=== PATIENT | male | born 1935 | race Caucasian/White ===

== ENCOUNTER 2017-06-15 06:45 | Day surgery (SDC) | payer MEDICARE, OTHER ==
[~2017-06-15 06:45] MED LIST: BUPIVACAINE HCL 0.75% INJ/PF (7.5 MG/1 ML) 10 ML SDV OD PRN; KETOROLAC TROMETHAMINE 0.45% 4 DROP/0.4 ML DROPERETTE OD PRN; LIDOCAINE 4% INJ/PF (40 MG/ML) 5 ML AMPUL OD PRN
[2017-06-15] MEDS: TROPICAMIDE 1% OPH SOLN 3 ML OD PRN ×3 (07:05→07:29)
[2017-06-15] MEDS: CYCLOPENTOLATE 0.2%/PHENYLEPHRINE 1% OPH SOLN 2 ML OD PRN ×3 (07:05→07:29)
[2017-06-15] MEDS: BESIFLOXACIN HCL 0.6% OPH SUSP 5 ML BOTTLE OD PRN ×3 (07:06→08:24)
[2017-06-15] MEDS ORDERED: CHONDR SU A NA/HYALUR INTRAOC KIT (SURGICARE) ONE (07:07)
[2017-06-15] MEDS: TETRACAINE HCL 0.5% OPH SOLN 0.6 ML DROPERETTE OD PRN ×2 (07:07→07:30)
[2017-06-15] MEDS ORDERED: EPINEPHRINE INJ/PF 1 MG/1 ML AMPULE ONE (07:07)
[2017-06-15] MEDS ORDERED: MIDAZOLAM 2 MG/2 ML INJ ONE (07:26)
[2017-06-15] MEDS ORDERED: LIDOCAINE 1% INJ-PF (10 MG/ML) 30 ML SDV ONE (07:29)
--- NOTE | 2017-06-15 09:04 | [facility] DISCHARGE SUMMARY E ---
[facility] Discharge Summary NAME: EDGARDO MARIA AGE: 81Y ADMITTED: 06/15/2017 DISCHARGED: 06/15/2017 HOSPITAL COURSE: The patient is an 81-year-old gentleman who underwent uneventful cataract extraction with intraocular lens implant right eye on 06/15/2017. He will be discharged to home. He is instructed to resume preoperative medications, to take Tylenol as needed for discomfort, to keep his eye shielded, to use Besivance, Durezol, and Ilevro at 3 p.m. and 8 p.m., and to follow up in my office in 1 day. DICTATING PHYSICIAN: EDITH SANON M.D. [id number] PHY#: [id number] ID: [id number] JOB#: [id number] ACCT: [id number] cc:EDITH SANON M.D. >
--- NOTE | 2017-06-15 09:05 | [facility] OPERATIVE REPORT E ---
[facility] Operative Report NAME: EDGARDO MARIA AGE: 81Y DATE OF SURGERY: 06/15/2017 ROOM: PREOPERATIVE DIAGNOSIS: Cataract, right eye. POSTOPERATIVE DIAGNOSIS: Cataract, right eye. PROCEDURE PERFORMED: Phacoemulsification with posterior chamber intraocular lens, right eye. SURGEON: EDITH SANON M.D. ANESTHESIA: Topical with MAC. INDICATIONS FOR SURGERY: Difficulty driving at night. Best corrected visual acuity 20/60. PROCEDURE: The patient was brought to the Operating Room and placed on the operative table. Following tetracaine drops, topical anesthesia was administered. This consisted of instrument wipe pledgets soaked in a solution of 4% Xylocaine mixed with 0.75% Marcaine in a 1:2 ratio. A 2 x 1 cm pledget was placed in the superior fornix. A 1 x 1 cm pledget was placed in the inferior fornix. The eye was patched shut for 5 minutes. The patch was removed. The eye was sterilely prepped and draped in the usual manner. Lid speculum was placed in the eye. The pledgets were removed. 4-0 black silk sutures were placed around the superior and the inferior rectus muscles to be used as traction. A conjunctival peritomy was made at the 10 o'clock position. Hemostasis was obtained with bipolar cautery. A posterior limbal groove was created using a crescent knife and dissected anteriorly towards the cornea. A sharp point blade was used to create a paracentesis site at the 2 o'clock position. A 2.4 mm keratome was used to enter the anterior chamber through the groove. Viscoelastic was injected into the anterior chamber. An anterior capsulotomy was performed using Utrata forceps in a capsulorrhexis fashion. Hydrodissection and hydrodelineation were performed. Phacoemulsification was performed in rhoyec-pju-ztlfrgs technique. A total of 7.44 CDE phaco time was used. Following this, the I/A unit was used to remove residual cortex. Viscoelastic was injected into the capsular bag. Intraocular lens model [id number], 19.0 diopters, serial number [id number] was placed in the capsular bag. The I/A unit was used to remove residual viscoelastic. The wound was seen to be watertight under high and low pressure, and no sutures were placed. The intraocular lens was well centered. The pressure was adjusted in the eye to normal pressure. The 4-0 black silk sutures and lid speculum were removed. The eye was shielded after Besivance drops were placed. The patient tolerated the procedure well and was sent to the Recovery Room in good condition. DICTATING PHYSICIAN: EDITH SANON M.D. [id number] PHY#: [id number] ID: [id number] JOB#: [id number] ACCT: [id number] cc:EDITH SANON M.D. >
== END 2017-06-15 09:01 | disposition home or self-care (01) ==
LOC: SC 06:45
PROVIDERS: ATTEND Ophthalmology
PROC: 08RJ3JZ Replacement of Right Lens with Synthetic Substitute, Percutaneous Approach (ICD-10-PCS; principal; 2017-06-15 08:00)
DX: H25.813 Combined forms of age-related cataract, bilateral (principal); H04.123 Dry eye syndrome of bilateral lacrimal glands; K21.9 Gastro-esophageal reflux disease without esophagitis; Z79.899 Other long term (current) drug therapy; Z79.82 Long term (current) use of aspirin
CPT/HCPCS: 66984; V2632; J2250; J3490 ×4; A9270; J0171; 142

== ENCOUNTER 2017-07-06 09:05 | Day surgery (SDC) | payer MEDICARE, OTHER ==
[~2017-07-06 09:05] MED LIST changes: -BUPIVACAINE HCL 0.75% INJ/PF (7.5 MG/1 ML) 10 ML SDV OD PRN; +BUPIVACAINE HCL 0.75% INJ/PF (7.5 MG/1 ML) 10 ML SDV OS PRN; +CHONDR SU A NA/HYALUR INTRAOC KIT (SURGICARE) ONE; +EPINEPHRINE INJ/PF 1 MG/1 ML AMPULE ONE; -KETOROLAC TROMETHAMINE 0.45% 4 DROP/0.4 ML DROPERETTE OD PRN; +KETOROLAC TROMETHAMINE 0.45% 4 DROP/0.4 ML DROPERETTE OS PRN; +LIDOCAINE 1% INJ-PF (10 MG/ML) 30 ML SDV ONE; -LIDOCAINE 4% INJ/PF (40 MG/ML) 5 ML AMPUL OD PRN; +LIDOCAINE 4% INJ/PF (40 MG/ML) 5 ML AMPUL OS PRN
[2017-07-06] MEDS: TROPICAMIDE 1% OPH SOLN 3 ML OS PRN ×3 (09:27→09:54)
[2017-07-06] MEDS: CYCLOPENTOLATE 0.2%/PHENYLEPHRINE 1% OPH SOLN 2 ML OS PRN ×3 (09:27→09:54)
[2017-07-06] MEDS: BESIFLOXACIN HCL 0.6% OPH SUSP 5 ML BOTTLE OS PRN ×4 (09:28→10:49)
[2017-07-06] MEDS: TETRACAINE HCL 0.5% OPH SOLN 0.6 ML DROPERETTE OS PRN ×2 (09:29→10:01)
[2017-07-06] MEDS ORDERED: MIDAZOLAM 2 MG/2 ML INJ ONE (09:54)
[2017-07-06] MEDS ORDERED: FENTANYL CITRATE INJ/PF 100 MCG/2 ML AMPUL ONE (09:54)
--- NOTE | 2017-07-06 11:05 | [facility] OPERATIVE REPORT E ---
[facility] Operative Report NAME: EDGARDO MARIA AGE: 81Y DATE OF SURGERY: 07/06/2017 ROOM: PREOPERATIVE DIAGNOSES: 1. Cataract, left eye. 2. Astigmatism, left eye. POSTOPERATIVE DIAGNOSES: 1. Cataract, left eye. 2. Astigmatism, left eye. PROCEDURE PERFORMED: Phacoemulsification with toric intraocular lens implant, left eye. SURGEON: EDITH SANON M.D. ANESTHESIA: Topical with MAC. INDICATIONS FOR SURGERY: Difficulty with glare with night driving. BEST CORRECTED VISUAL ACUITY: 20/60. DESCRIPTION OF PROCEDURE: The patient was brought to the operating room and placed on the operative table. Following tetracaine drops, topical anesthesia was administered. This consisted of instrument wipe pledgets soaked in a solution of 4% Xylocaine mixed with 0.75% Marcaine in a 1:2 ratio. A 2 x 1 cm pledget was placed in the superior fornix. A 1 x 1 cm pledget was placed in the inferior fornix. The eye was patched shut for 5 minutes. The patch was removed. The eye was sterilely prepped and draped in the usual manner. Lid speculum was placed in the eye. The pledgets were removed, 4-0 black silk sutures were placed around the superior and the inferior rectus muscles to be used as traction. A conjunctival peritomy was made at the 10 o'clock position. Hemostasis was obtained with bipolar cautery. A posterior limbal groove was created using a crescent knife and dissected anteriorly towards the cornea. A sharp point blade was used to create a paracentesis site at the 2 o'clock position. A 2.4 mm keratome was used to enter the anterior chamber through the groove. Viscoelastic was injected into the anterior chamber. An anterior capsulotomy was performed using Utrata forceps in a capsulorrhexis fashion. Hydrodissection and hydrodelineation were performed. Phacoemulsification was performed in zofwir-ezt-cmbzsfc technique. Total phaco time 52 seconds. Following this, the I/A unit was used to remove residual cortex. Viscoelastic was injected into the capsular bag. Intraocular lens Model [id number], 20.5 diopters, serial number [id number] was placed in the capsular bag. The I/A unit was used to remove residual viscoelastic. The wound was seen to be watertight under high and low pressure, and no sutures were placed. The intraocular lens was well centered. The pressure was adjusted in the eye to normal pressure. The 4-0 black silk sutures and lid speculum were removed. The eye was shielded after Besivance drops were placed. The patient tolerated the procedure well and was sent to the recovery room in good condition. Prior to surgery, the patient was placed in the seated position and a 0-, 270-, and 180-degree axis of the eye was marked using a marking level. Prior to implanting the lens, the 175-degree axis was marked on the eye and the lens was centered at this axis. DICTATING PHYSICIAN: EDITH SANON M.D. [id number] PHY#: [id number] ID: [id number] JOB#: [id number] ACCT: [id number] cc:EDITH SANON M.D. >
--- NOTE | 2017-07-06 11:10 | [facility] DISCHARGE SUMMARY E ---
[facility] Discharge Summary NAME: EDGARDO MARIA AGE: 81Y ADMITTED: 07/06/2017 DISCHARGED: 07/06/2017 HOSPITAL COURSE: The patient is an 81-year-old gentleman who underwent uneventful cataract extraction with toric intraocular lens implant on 07/06/2017. He will be discharged to home. He was instructed to resume preoperative medications, to take Tylenol as needed for discomfort, to keep his eye shielded, to use Besivance, Durezol, and Ilevro at 3:00 p.m. and 8:00 p.m., to follow up in my office in 1 day. DICTATING PHYSICIAN: EDITH SANON M.D. [id number] PHY#: [id number] ID: [id number] JOB#: [id number] ACCT: [id number] cc:EDITH SANON M.D. >
== END 2017-07-06 11:21 | disposition home or self-care (01) ==
LOC: SC 09:05
PROVIDERS: ATTEND Ophthalmology
PROC: 08RK3JZ Replacement of Left Lens with Synthetic Substitute, Percutaneous Approach (ICD-10-PCS; principal; 2017-07-06 10:30)
DX: H25.812 Combined forms of age-related cataract, left eye (principal); Z96.1 Presence of intraocular lens; H52.202 Unspecified astigmatism, left eye
CPT/HCPCS: 66984; V2787; J2250; J3490 ×4; A9270; J0171; J3010; 142

== ENCOUNTER → 2017-12-28 | Outpatient (CLI) | payer MEDICARE, OTHER | LOC: OD 14:48 | PROVIDERS: ATTEND Family Medicine | DX: M25.50 Pain in unspecified joint (principal) | CPT/HCPCS: 36415; 85652; 86140 ==

== ENCOUNTER 2018-09-13 14:48 | Observation (INO) | payer MEDICARE, OTHER ==
[2018-09-13] MEDS ORDERED: MORPHINE SULFATE 10 MG/ML INJ IV ONE (16:08)
[2018-09-13] MEDS ORDERED: NORMAL SALINE 1000 ML 1,000 ML IV ONE (16:08)
[2018-09-13] MEDS ORDERED: ONDANSETRON HCL INJ/PF 4 MG/2 ML SDV IV ONE (16:08)
--- NOTE | 2018-09-13 16:10 | ER Document Report ---
ED Medical Screen (RME) - General Chief Complaint: Abdominal Pain Stated Complaint: GALLBLADDER PAIN Time Seen by Provider: 09/13/18 16:07 Primary Care Provider: LILLY VIZCARRA DO [Primary Care Provider] - Follow up as needed TRAVEL OUTSIDE OF THE [place] IN LAST 30 DAYS: No - HPI Notes: 09/13/18 16:09 Patient is an 82-year-old male with history of cholelithiasis who presents com plaining right upper quadrant pain and right scapular pain that began 5 days ago. Patient states that he was in [place] at the end of last week and was at the hospital for 2 days and they ran multiple tests on him. Patient states that he was told he need to see a doctor down here for his gallbladder and patient states that he cannot wait for an appointment with his family doctor so he presented here because the pain is getting worse. It is also worsened by p.o. intake. Patient states that the sharp pains come intermittently and he has associated nausea. Patient states that his urine is darker color as well. Denies drug allergies. No other medical history. Denies KELLY, fever, neck pain, URI, CP, SOB, dysuria, or rash. I have treated and performed a rapid initial assessment of this patient. A comprehensive ED assessment and evaluation of the patient, analysis of test results and completion of medical decision making process will be conducted by additional ED providers. PHYSICAL EXAMINATION: GENERAL: Well-appearing, well-nourished and in no acute distress. A&Ox4. Answers questions appropriately. LUNGS: Breath sounds clear to auscultation bilaterally and equal. No wheezes rales or rhonchi. HEART: Regular rate and rhythm without murmurs, rubs, gallops. ABDOMEN: Soft, nondistended abdomen. No guarding, no rebound. Normal bowel sounds present. No CVA tenderness bilaterally. + RUQ tenderness (cannot elicit thorough abd exam w/o bed, however). Extremities: No cyanosis, clubbing, or edema b/l. NEUROLOGICAL: Normal speech, normal gait. PSYCH: Normal mood, normal affect. - Related Data Allergies/Adverse Reactions: No Known Allergies Allergy (Verified 04/17/14 07:03) Past Medical History - Past Medical History Cardiac Medical History: Reports: Hx Atrial Fibrillation - paroxysmal Denies: Hx Heart Attack, Hx Hypertension Pulmonary Medical History: Denies: Hx Asthma Neurological Medical History: Denies: Hx Cerebrovascular Accident, Hx Seizures GI Medical History: Reports: Hx Gastroesophageal Reflux Disease. Denies: Hx Hepatitis, Hx Hiatal Hernia, Hx Ulcer Musculoskeltal Medical History: Reports Hx Arthritis Infectious Medical History: Denies: Hx Hepatitis Past Surgical History: Reports: Hx Genitourinary Surgery - vasectomy, Hx Neurologic Surgery - nerve ball removed form left arm 30 yrs ago. Denies: Hx Open Heart Surgery, Hx Pacemaker - Immunizations Immunizations up to date: Yes Hx Diphtheria, Pertussis, Tetanus Vaccination: Yes Physical Exam - Vital signs Vitals: Temp Pulse Resp BP Pulse Ox 98.9 F 99 18 148/73 H 96 09/13/18 14:52 09/13/18 14:52 09/13/18 14:52 09/13/18 14:52 09/13/18 14:52 Course - Vital Signs Vital signs: Temp Pulse Resp BP Pulse Ox 98.9 F 99 18 148/73 H 96 09/13/18 14:52 09/13/18 14:52 09/13/18 14:52 09/13/18 14:52 09/13/18 14:52 Doctor's Discharge - Discharge Referrals: LILLY VIZCARRA DO [Primary Care Provider] - Follow up as needed
[2018-09-13 16:51] LABS: ABSOLUTE EOSINOPHILS # (AUTO) 0.4 10^3/uL (0.0-0.6); ABSOLUTE LYMPHOCYTES (AUTO) 0.9 10^3/uL (0.5-4.7); ABSOLUTE NEUT (AUTO) 6.2 10^3/uL (1.7-8.2); BASOPHILS % (AUTO) 0.5 % (0-2); EOSINOPHILS % (AUTO) 4.2 % (0-6); HEMATOCRIT 43.7 % (37.9-51.0); HEMOGLOBIN 14.6 g/dL (13.5-17.0); LYMPHOCYTES % (AUTO) 10.1 % (13-45); MEAN CORPUSCULAR HEMOGLOBIN 30.8 pg (27.0-33.4); MEAN CORPUSCULAR HGB CONC 33.5 g/dL (32.0-36.0); MEAN CORPUSCULAR VOLUME 92 fl (80-97); MONOCYTES % (AUTO) 11.8 % (3-13); PLATELET COUNT 261 10^3/uL (150-450); RED BLOOD COUNT 4.76 10^6/uL (4.35-5.55); RED CELL DISTRIBUTION WIDTH 14.1 % (11.5-14.0); SEGMENTED NEUTROPHILS % (AUTO) 73.4 % (42-78); TOTAL CELLS COUNTED % (AUTO) 100 %; WHITE BLOOD COUNT 8.5 10^3/uL (4.0-10.5)
[2018-09-13 17:16] LABS: ALANINE AMINOTRANSFERASE 28 U/L (21-72); ALBUMIN 4.6 g/dL (3.5-5.0); ALKALINE PHOSPHATASE 92 U/L (38-126); ANION GAP 10 (5-19); ASPARTATE AMINO TRANSFERASE 25 U/L (17-59); BILIRUBIN,DIRECT 0.3 mg/dL (0.0-0.4); BILIRUBIN,TOTAL 1.1 mg/dL (0.2-1.3); BLOOD UREA NITROGEN 12 mg/dL (7-20); CALCIUM 9.9 mg/dL (8.4-10.2); CARBON DIOXIDE 31 mmol/L (22-30); CHLORIDE 99 mmol/L (98-107); GLUCOSE 111 mg/dL (75-110); LIPASE 61.6 U/L (23-300); POTASSIUM 4.1 mmol/L (3.6-5.0); SODIUM 140.4 mmol/L (137-145); TOTAL PROTEIN 7.6 g/dL (6.3-8.2)
--- NOTE | 2018-09-13 18:47 | RADIOLOGY REPORT (SQ) ---
EXAM DESCRIPTION: U/S ABDOMEN LIMITED W/O DOP COMPLETED DATE/TIME: 09/13/2018 6:33 pm REASON FOR STUDY: RUQ pain, h/o cholelithiasis COMPARISON: None. TECHNIQUE: Dynamic and static grayscale images acquired of the abdomen and recorded on PACS. Franklin gonzalez selected color Doppler and spectral images recorded. LIMITATIONS: None. FINDINGS: PANCREAS: No masses. The tail of the pancreas is obscured by gas. LIVER: No masses. Echotexture normal. LIVER VASCULATURE: Normal directional flow of the main portal vein and hepatic veins. GALLBLADDER: There are some small gallstones. There is some sludge. There is no wall thickening. T here is no pericholecystic fluid. ULTRASOUND-DETECTED CARTER'S SIGN: Negative. INTRAHEPATIC DUCTS AND COMMON DUCT: Common bile duct is dilated at 8 mm. INFERIOR VENA CAVA: Normal flow. AORTA: No aneurysm. RIGHT KIDNEY: Normal size, 12.2 cm. Normal echogenicity. No solid or suspicious masses. No hydroneph rosis. No calcifications. PERITONEAL AND RIGHT PLEURAL SPACE: No ascites or effusions. OTHER: No other significant findings. IMPRESSION: Cholelithiasis with dilated common bile duct. Correlate for biliary obstruction. TECHNICAL DOCUMENTATION: JOB ID: [id number] [employer]- All Rights Reserved Reading location - IP/workstation name: [email or web address]
--- NOTE | 2018-09-13 19:30 | ER Document Report ---
ED General - General Chief Complaint: Abdominal Pain Stated Complaint: GALLBLADDER PAIN Time Seen by Provider: 09/13/18 16:07 Primary Care Provider: LILLY VIZCARRA DO [Primary Care Provider] - Follow up as needed Notes: Patient is an 82-year-old male without chronic medical problems who presents with 4 days of progressively worsening upper abdominal pain with associated nausea but no vomiting. Patient was seen in [place] on 09/09, diagnosed with a gallbladder neck stone as well as a HIDA scan suggestive of a nonfunctional gallbladder. He elected to be discharged stating that he wanted to have his surgery completed where he lives here in [place]. He states that he currently has a dull, throbbing, constant pain to his right upper quadrant. Associated with nausea. No exacerbating or alleviating factors that he can identify. Regards to symptoms as being moderate to severe in nature. Denies any history of abdominal surgeries. Has not yet followed up with his primary care physician. TRAVEL OUTSIDE OF THE U.S. IN LAST 30 DAYS: No - Related Data Allergies/Adverse Reactions: No Known Allergies Allergy (Verified 04/17/14 07:03) Past Medical History - General Information source: Patient - Social History Smoking Status: Never Smoker Frequency of alcohol use: None Drug Abuse: None Lives with: Alone Family History: Arthritis, Hyperlipidemia Patient has suicidal ideation: No Patient has homicidal ideation: No - Past Medical History Cardiac Medical History: Reports: Hx Atrial Fibrillation - paroxysmal Denies: Hx Heart Attack, Hx Hypertension Pulmonary Medical History: Denies: Hx Asthma Neurological Medical History: Denies: Hx Cerebrovascular Accident, Hx Seizures Renal/ Medical History: Denies: Hx Peritoneal Dialysis GI Medical History: Reports: Hx Gastroesophageal Reflux Disease. Denies: Hx Hepatitis, Hx Hiatal Hernia, Hx Ulcer Musculoskeletal Medical History: Reports Hx Arthritis Infectious Medical History: Denies: Hx Hepatitis Past Surgical History: Reports: Hx Genitourinary Surgery - vasectomy, Hx Neurologic Surgery - nerve ball removed form left arm 30 yrs ago. Denies: Hx Open Heart Surgery, Hx Pacemaker - Immunizations Immunizations up to date: Yes Hx Diphtheria, Pertussis, Tetanus Vaccination: Yes Hx Pneumococcal Vaccination: 10/27/13 Review of Systems - Review of Systems Notes: Constitutional: Negative for fever. HENT: Negative for sore throat. Eyes: Negative for visual changes. Cardiovascular: Negative for chest pain. Respiratory: Negative for shortness of breath. Gastrointestinal: Positive for abdominal pain, nausea Genitourinary: Negative for dysuria. Musculoskeletal: Negative for back pain. Skin: Negative for rash. Neurological: Negative for headaches, weakness or numbness. 10 point ROS negative except as marked above and in HPI. Physical Exam - Vital signs Vitals: Temp Pulse Resp BP Pulse Ox 98.9 F 99 18 148/73 H 96 09/13/18 14:52 09/13/18 14:52 09/13/18 14:52 09/13/18 14:52 09/13/18 14:52 Interpretation: Hypertensive Notes: PHYSICAL EXAMINATION: GENERAL: Well-appearing, well-nourished and in no acute distress. HEAD: Atraumatic, normocephalic. EYES: Pupils equal round and reactive to light, extraocular movements intact, sclera anicteric, conjunctiva are normal. ENT: nares patent, oropharynx clear without exudates. Moist mucous membranes. NECK: Normal range of motion, supple without lymphadenopathy LUNGS: Breath sounds clear to auscultation bilaterally and equal. No wheezes rales or rhonchi. HEART: Regular rate and rhythm without murmurs ABDOMEN: Soft, focal tenderness to the right upper quadrant without any areas of localized tenderness, normoactive bowel sounds. No guarding, no rebound. No masses appreciated. EXTREMITIES: Normal range of motion, no pitting or edema. No cyanosis. NEUROLOGICAL: No focal neurological deficits. Moves all extremities spontaneously and on command. PSYCH: Normal mood, normal affect. SKIN: Warm, Dry, normal turgor, no rashes or lesions noted. Course - Re-evaluation Re-evalutation: 09/13/18 19:27 Patient presents with ongoing right upper quadrant abdominal pain with associated nausea. Vitals are within acceptable limits. Labs do not demonstrate any evidence of distal obstruction. Patient has imaging reads and disc with him. I did discuss with the surgeon on-call Dr. Waddell who has accepted the patient for hospitalization and cholecystectomy. - Vital Signs Vital signs: Temp Pulse Resp BP Pulse Ox 98.9 F 99 18 148/73 H 96 09/13/18 14:52 09/13/18 14:52 09/13/18 14:52 09/13/18 14:52 09/13/18 14:52 - Laboratory Result Diagrams: 09/13/18 16:38 09/13/18 16:38 Laboratory results interpreted by me: 09/13/18 09/13/18 16:38 16:38 RDW 14.1 H Lymphocytes % 10.1 L Carbon Dioxide 31 H Glucose 111 H - Diagnostic Test Radiology reviewed: Reports reviewed Discharge - Discharge Clinical Impression: Symptomatic cholelithiasis, Upper abdominal pain Condition: Fair Disposition: ADMITTED INPATIENT Admitting Provider: Surgicalist Unit Admitted: Surgical Floor Referrals: LILLY VIZCARRA DO [Primary Care Provider] - Follow up as needed
[2018-09-13] MEDS ORDERED: ONDANSETRON HCL INJ/PF 4 MG/2 ML SDV IV PRN (21:00)
--- NOTE | 2018-09-13 21:00 | PDOC H&P ---
History of Present Illness Admission Date/PCP: 09/13/18 19:45 LILLY VIZCARRA DO Patient complains of: RUQ pains History of Present Illness: EDGARDO MARIA JR is a 82 year old male who was in [place], [place] for a [employer] retreat when he developed RUQ pains with nausea after eating pizza 5 days ago. Went to am ER there and w/up showed cholelithiasis and non functioning gallbladdr without CBD obstruction. Hr was supposed to have cholecystectomy there but came back here to have his operation. Repeat US here showed cholelithiasis with LFT's normal. He is still c/o RUQ pains aggravated by coughing or deep breathing. Denies fever/chill, diarrhea but has constipation. Past Medical History Cardiac Medical History: Reports: Atrial Fibrillation - paroxysmal Denies: Myocardial Infarction, Hypertension Pulmonary Medical History: Denies: Asthma Neurological Medical History: Denies: Seizures GI Medical History: Reports: Gastroesophageal Reflux Disease Denies: Hepatitis, Hiatal Hernia Musculoskeltal Medical History: Reports: Arthritis Hematology: Denies: Anemia, Sickle Cell Disease Past Surgical History Past Surgical History: Reports: Orthopedic Surgery - [id number] last at [place]. He did not require cardiac clearanc, Other Denies: Pacemaker Social History Lives with: Alone Smoking Status: Never Smoker Family History Family History: Arthritis, Hyperlipidemia Parental Family History Reviewed: Yes - 103 yo and healthy; Does not know his father Children Family History Reviewed: No Sibling(s) Family History Reviewed.: No - only child Medication/Allergy Home Medications: Aspirin [Ecotrin 81 mg EC Tablet] 81 mg PO DAILY 09/13/18 Allergies/Adverse Reactions: No Known Allergies Allergy (Verified 04/17/14 07:03) Review of Systems Constitutional: PRESENT: as per HPI Eyes: PRESENT: other - no visual/hearing changes Gastrointestinal: PRESENT: abdominal pain, constipation, nausea Genitourinary: PRESENT: other - no dysuria Physical Exam Vital Signs: Temp Pulse Resp BP Pulse Ox 98.9 F 99 18 148/73 H 96 09/13/18 14:52 09/13/18 14:52 09/13/18 14:52 09/13/18 14:52 09/13/18 14:52 Intake & Output 09/12/18 09/13/18 09/14/18 06:59 06:59 06:59 Intake Total 1000 Balance 1000 Weight 86.8 kg General appearance: PRESENT: mild distress Head exam: PRESENT: atraumatic Eye exam: PRESENT: conjunctiva pink Mouth exam: PRESENT: moist Neck exam: PRESENT: full ROM Respiratory exam: PRESENT: clear to auscultation xavi Cardiovascular exam: PRESENT: RRR Pulses: PRESENT: normal radial pulses Vascular exam: PRESENT: normal capillary refill GI/Abdominal exam: PRESENT: soft, tenderness - RUQ Rectal exam: PRESENT: deferred Extremities exam: PRESENT: full ROM Musculoskeletal exam: PRESENT: ambulatory Neurological exam: PRESENT: alert, oriented to person, oriented to place, oriented to time, oriented to situation Psychiatric exam: PRESENT: appropriate affect Skin exam: PRESENT: normal color, warm Results Laboratory Results: 09/13/18 16:38 09/13/18 16:38 09/13/18 09/13/18 16:38 16:38 WBC 8.5 RBC 4.76 Hgb 14.6 Hct 43.7 MCV 92 MCH 30.8 MCHC 33.5 RDW 14.1 H Plt Count 261 Seg Neutrophils % 73.4 Lymphocytes % 10.1 L Monocytes % 11.8 Eosinophils % 4.2 Basophils % 0.5 Absolute Neutrophils 6.2 Absolute Lymphocytes 0.9 Absolute Monocytes 1.0 Absolute Eosinophils 0.4 Absolute Basophils 0.0 Sodium 140.4 Potassium 4.1 Chloride 99 Carbon Dioxide 31 H Anion Gap 10 BUN 12 Creatinine 0.73 Est GFR ( Amer) > 60 Est GFR (Non-Af Amer) > 60 Glucose 111 H Calcium 9.9 Total Bilirubin 1.1 AST 25 ALT 28 Alkaline Phosphatase 92 Total Protein 7.6 Albumin 4.6 Lipase 61.6 Impressions: Abdomen Ultrasound 09/13/18 16:08 IMPRESSION: Cholelithiasis with dilated common bile duct. Correlate for biliary obstruction. Assessment & Plan - Diagnosis (1) Symptomatic cholelithiasis Is this a current diagnosis for this admission?: Yes - Time Time Spent: 30 to 50 Minutes - Inpatient Certification Medical Necessity: Need For IV Fluids, Need for IV Antibiotics, Need for Surgery - Plan Summary Plan Summary: Will obtain medical clearance prior to Lap Corrina Possible lap corrina tomorrow with Dr Benjamin
[2018-09-13] MEDS ORDERED: MORPHINE SULFATE 10 MG/ML INJ IV PRN (21:04)
[2018-09-13] MEDS ORDERED: DEXTROSE 40% GEL 15 GM TUBE PO PRN ×2 (21:05)
[2018-09-13] MEDS ORDERED: GLUCAGON,HUMAN RECOMB 1 MG INJ SUBCUT PRN (21:05)
[2018-09-13] MEDS ORDERED: DEXTROSE 50%-WATER 25 GM/50 ML DISP.SYRIN IV PRN ×2 (21:05)
[2018-09-13] MEDS ORDERED: PIPERACILLIN/TAZOBACTAM 3.375 GM VIAL IV SCH (21:15)
[2018-09-13] MEDS ORDERED: KETOROLAC TROMETHAMINE INJ/PF 30 MG/1 ML SDV IV PRN (22:23)
[2018-09-13] MEDS: PIPERACILLIN SODIUM/TAZOBACTAM 3.375 GM in NORMAL SALINE 100 ML IV SCH (23:50)
--- NOTE | 2018-09-13 23:54 | PDOC CONSULTATION ---
Consultation Consult Date: 09/13/18 Attending physician:: MINE SOMMERS Provider Consulted: EDGARDO GOODWIN Consult reason:: Preop eval History of Present Illness Admission Date/PCP: 09/13/18 19:45 LILLY VIZCARRA DO Patient complains of: Right upper quadrant pain History of Present Illness: EDGARDO MARIA JR is a 82 year old male with a past medical history of atrial fibrillation status post catheter ablation resulting in normal sinus rhythm gre ater than 3 years ago. Whom is otherwise healthy. Patient has had several surgeries subsequent to his catheter ablation for atrial fibrillation. Including colonoscopy, cataracts and L-spine surgery. Preop work-up included EKG unchanged from 2016, patient is otherwise fit, activities not limited by shortness of breath or chest pain. He denies history of adverse reaction or difficulty during or subsequent to anesthesia. Past Medical History Cardiac Medical History: Reports: Atrial Fibrillation - paroxysmal Denies: Myocardial Infarction, Hypertension Pulmonary Medical History: Denies: Asthma Neurological Medical History: Denies: Seizures GI Medical History: Reports: Gastroesophageal Reflux Disease Denies: Hepatitis, Hiatal Hernia Musculoskeltal Medical History: Reports: Arthritis Psychiatric Medical History: Denies: Alcohol Dependency, Tobacco Dependency Hematology: Denies: Anemia, Sickle Cell Disease Past Surgical History Past Surgical History: Reports: Orthopedic Surgery - [id number] last at [facility]. He did not require cardiac clearanc, Other Denies: Pacemaker Social History Information Source: Patient Lives with: Alone Smoking Status: Never Smoker Frequency of Alcohol Use: None Hx Recreational Drug Use: No Drugs: None Hx Prescription Drug Abuse: No - Advance Directive Resuscitation Status: Full Code Family History Family History: Arthritis, Hyperlipidemia Parental Family History Reviewed: Yes Children Family History Reviewed: Yes Sibling(s) Family History Reviewed.: Yes Medication/Allergy Home Medications: Aspirin [Ecotrin 81 mg EC Tablet] 81 mg PO DAILY 09/13/18 Allergies/Adverse Reactions: No Known Allergies Allergy (Verified 04/17/14 07:03) Review of Systems Constitutional: ABSENT: chills, fever(s), headache(s), weight gain, weight loss Eyes: ABSENT: visual disturbances Ears: ABSENT: hearing changes Cardiovascular: ABSENT: chest pain, dyspnea on exertion, edema, orthropnea, palpitations Respiratory: ABSENT: cough, hemoptysis Gastrointestinal: ABSENT: abdominal pain, constipation, diarrhea, hematemesis, hematochezia, nausea, vomiting Genitourinary: ABSENT: dysuria, hematuria Musculoskeletal: ABSENT: joint swelling Integumentary: ABSENT: rash, wounds Neurological: ABSENT: abnormal gait, abnormal speech, confusion, dizziness, focal weakness, syncope Psychiatric: ABSENT: anxiety, depression, homidical ideation, suicidal ideation Endocrine: ABSENT: cold intolerance, heat intolerance, polydipsia, polyuria Hematologic/Lymphatic: ABSENT: easy bleeding, easy bruising Physical Exam Vital Signs: Temp Pulse Resp BP Pulse Ox 97.9 F 80 18 123/71 94 09/13/18 20:42 09/13/18 20:42 09/13/18 20:42 09/13/18 20:42 09/13/18 20:42 Intake & Output 09/12/18 09/13/18 09/14/18 11:59 11:59 11:59 Intake Total 1000 Balance 1000 Weight 86.8 kg General appearance: PRESENT: no acute distress, well-developed, well-nourished Head exam: PRESENT: atraumatic, normocephalic Eye exam: PRESENT: conjunctiva pink, EOMI, PERRLA. ABSENT: scleral icterus Ear exam: PRESENT: normal external ear exam Mouth exam: PRESENT: moist, tongue midline Neck exam: ABSENT: carotid bruit, JVD, lymphadenopathy, thyromegaly Respiratory exam: PRESENT: clear to auscultation xavi. ABSENT: rales, rhonchi, wheezes Cardiovascular exam: PRESENT: RRR. ABSENT: diastolic murmur, rubs, systolic murmur Pulses: PRESENT: normal dorsalis pedis pul Vascular exam: PRESENT: normal capillary refill GI/Abdominal exam: PRESENT: normal bowel sounds, soft. ABSENT: distended, guarding, mass, organolmegaly, rebound, tenderness Rectal exam: PRESENT: deferred Extremities exam: PRESENT: full ROM. ABSENT: calf tenderness, clubbing, pedal edema Neurological exam: PRESENT: alert, awake, oriented to person, oriented to place, oriented to time, oriented to situation, CN II-XII grossly intact. ABSENT: motor sensory deficit Psychiatric exam: PRESENT: appropriate affect, normal mood. ABSENT: homicidal ideation, suicidal ideation Skin exam: PRESENT: dry, intact, warm. ABSENT: cyanosis, rash Results Laboratory Results: 09/13/18 16:38 09/13/18 16:38 09/13/18 09/13/18 16:38 16:38 WBC 8.5 RBC 4.76 Hgb 14.6 Hct 43.7 MCV 92 MCH 30.8 MCHC 33.5 RDW 14.1 H Plt Count 261 Seg Neutrophils % 73.4 Lymphocytes % 10.1 L Monocytes % 11.8 Eosinophils % 4.2 Basophils % 0.5 Absolute Neutrophils 6.2 Absolute Lymphocytes 0.9 Absolute Monocytes 1.0 Absolute Eosinophils 0.4 Absolute Basophils 0.0 Sodium 140.4 Potassium 4.1 Chloride 99 Carbon Dioxide 31 H Anion Gap 10 BUN 12 Creatinine 0.73 Est GFR ( Amer) > 60 Est GFR (Non-Af Amer) > 60 Glucose 111 H Calcium 9.9 Total Bilirubin 1.1 AST 25 ALT 28 Alkaline Phosphatase 92 Total Protein 7.6 Albumin 4.6 Lipase 61.6 Impressions: Abdomen Ultrasound 09/13/18 16:08 IMPRESSION: Cholelithiasis with dilated common bile duct. Correlate for biliary obstruction. Assessment and Plan - Diagnosis (1) Symptomatic cholelithiasis Is this a current diagnosis for this admission?: Yes Plan: Lap jake scheduled for the a.m., no pre-existing modifiable risks present to delay planned low risk surgery. (2) Upper abdominal pain Is this a current diagnosis for this admission?: Yes Plan: Defer to surgery (3) History of atrial fibrillation Is this a current diagnosis for this admission?: Yes Plan: Resolved, EKG unchanged from 2016. Proceed with scheduled surgery, no additional recommendations
--- NOTE | 2018-09-14 00:15 | EKG REPORT ---
SEVERITY:- ABNORMAL ECG - SINUS RHYTHM ATRIAL PREMATURE COMPLEX LEFT ANTERIOR FASCICULAR BLOCK CONSIDER ANTEROSEPTAL INFARCT : Confirmed by: Reinier Barbosa 14-Sep-2018 00:14:42
[2018-09-14] MEDS: PIPERACILLIN SODIUM/TAZOBACTAM 3.375 GM in NORMAL SALINE 100 ML IV SCH ×4 (05:20→23:17)
[2018-09-14] MEDS ORDERED: BUPIVACAINE HCL 0.25 % INJ/PF (2.5 MG/1 ML) 30 ML VIAL ONE (08:41)
[2018-09-14] MEDS ORDERED: FENTANYL CITRATE INJ/PF 250 MCG/5 ML AMPULE ONE (09:00)
[2018-09-14] MEDS ORDERED: PROPOFOL INJ 200 MG/20 ML VIAL IV ONE (09:00)
[2018-09-14] MEDS ORDERED: LIDOCAINE 2% INJ-PF (100 MG/5 ML) SYRINGE ONE (09:00)
--- NOTE | 2018-09-14 09:19 | PDOC PROGRESS REPORT ---
Subjective Progress Note for:: 09/14/18 Subjective:: 82-year-old male admitted with acute cholecystitis. The patient still reports abdominal pain. He denies chest pain, shortness of breath, fevers, chills, dizziness, orthostasis, blurry vision. Reason For Visit: SYMPTOMATIC CHOLELITHIASIS Physical Exam Vital Signs: Temp Pulse Resp BP Pulse Ox 97.5 F 71 16 109/63 97 09/14/18 08:26 09/14/18 08:26 09/14/18 08:26 09/14/18 08:26 09/14/18 08:26 Intake & Output 09/13/18 09/14/18 09/15/18 06:59 06:59 06:59 Intake Total 1430 Balance 1430 Weight 85.6 kg General appearance: PRESENT: no acute distress, cooperative Head exam: PRESENT: atraumatic, normocephalic Eye exam: PRESENT: EOMI Mouth exam: PRESENT: moist, neck supple Teeth exam: ABSENT: poor dentation Neck exam: ABSENT: meningismus, tenderness, thyromegaly, tracheal deviation Respiratory exam: PRESENT: clear to auscultation xavi, unlabored. ABSENT: chest wall tenderness, wheezes Cardiovascular exam: PRESENT: RRR Pulses: PRESENT: normal radial pulses GI/Abdominal exam: PRESENT: soft, tenderness - Right upper quadrant. ABSENT: rebound, rigid Rectal exam: PRESENT: deferred Extremities exam: ABSENT: clubbing Musculoskeletal exam: ABSENT: deformity Neurological exam: PRESENT: alert, awake, oriented to person, oriented to place, oriented to time, oriented to situation, CN II-XII grossly intact. ABSENT: motor sensory deficit Psychiatric exam: ABSENT: agitated, anxious Skin exam: ABSENT: cyanosis, erythema, jaundice Results Laboratory Results: 09/13/18 16:38 09/13/18 16:38 09/13/18 09/13/18 16:38 16:38 WBC 8.5 RBC 4.76 Hgb 14.6 Hct 43.7 MCV 92 MCH 30.8 MCHC 33.5 RDW 14.1 H Plt Count 261 Seg Neutrophils % 73.4 Lymphocytes % 10.1 L Monocytes % 11.8 Eosinophils % 4.2 Basophils % 0.5 Absolute Neutrophils 6.2 Absolute Lymphocytes 0.9 Absolute Monocytes 1.0 Absolute Eosinophils 0.4 Absolute Basophils 0.0 Sodium 140.4 Potassium 4.1 Chloride 99 Carbon Dioxide 31 H Anion Gap 10 BUN 12 Creatinine 0.73 Est GFR ( Amer) > 60 Est GFR (Non-Af Amer) > 60 Glucose 111 H Calcium 9.9 Total Bilirubin 1.1 AST 25 ALT 28 Alkaline Phosphatase 92 Total Protein 7.6 Albumin 4.6 Lipase 61.6 Impressions: Abdomen Ultrasound 09/13/18 16:08 IMPRESSION: Cholelithiasis with dilated common bile duct. Correlate for biliary obstruction. Assessment & Plan - Diagnosis (1) Acute cholecystitis Is this a current diagnosis for this admission?: Yes - Plan Summary Plan Summary: This is an 82-year-old male with right upper quadrant pain and gallstones. I be lieve he has early acute cholecystitis. The patient has been on intravenous antibiotics. Plan for laparoscopic cholecystectomy today. The patient is in agreement with the treatment plan. Risks/benefits discussed, informed consent obtained, and all questions answered.
[2018-09-14] MEDS ORDERED: PROMETHAZINE HCL INJ 25 MG/1 ML VIAL IV PRN ×2 (09:56)
[2018-09-14] MEDS ORDERED: MEPERIDINE HCL/PF INJ 25 MG/1 ML DISP.SYRIN IV PRN (09:56)
[2018-09-14] MEDS ORDERED: FENTANYL CITRATE INJ/PF 100 MCG/2 ML AMPUL IV PRN ×3 (09:56)
[2018-09-14] MEDS ORDERED: MORPHINE SULFATE 10 MG/ML INJ IV PRN (09:56)
[2018-09-14] MEDS ORDERED: DIPHENHYDRAMINE HCL 50 MG/ML VIAL IV PRN (09:56)
[2018-09-14] MEDS: FENTANYL CITRATE INJ/PF 100 MCG/2 ML AMPUL ONE ×2 (11:15→11:20)
--- NOTE | 2018-09-14 11:34 | Operative Report ---
Nonrecallable Operative Report DATE OF SURGERY: 09/14/18 PREOPERATIVE DIAGNOSIS: Acute cholecystitis POSTOPERATIVE DIAGNOSIS: Acute gangrenous cholecystitis OPERATION: Laparoscopic cholecystectomy SURGEON: TREY JUAN ANESTHESIA: GA TISSUE REMOVED OR ALTERED: Gallbladder COMPLICATIONS: None apparent ESTIMATED BLOOD LOSS: 300 cc PROCEDURE: Drains/implants: 15 [place]ander round Bryant drain in the gallbladder fossa. Procedure in detail: After informed consent was obtained, the patient was brought to the operating room and laid in the supine position. The area of the abdomen was prepped and draped in a normal sterile fashion. A 15 blade scalpel was used to create a supraumbilical incision. Dissection was carried through the subcutaneous tissue using sharp and blunt means. The cicatrix was identified, grasped with a Vicente clamp, and retracted upwards. The linea alba fascia was incised sharply, the abdomen was entered sharply. The balloon trocar was inserted, and pneumoperitoneum was achieved. A subxiphoid 5 mm port was then placed under direct laparoscopic visualization. 2 more 5 mm ports were placed in the right upper quadrant in similar fashion. Atraumatic graspers were inserted into the 5 mm trochars. The gallbladder was identified. It was gangrenous appearing and incredibly inflamed. It was tense and distended. A cyst aspiration needle was then used to aspirate approximately 80 cc of thick bile from the gallbladder. It was then retracted superiorly. There were multiple adhesions of the duodenum and omentum to the gallbladder. These were lysed sharply. The inflammatory reaction extended to the infundibulum of the gallbladder. It was very dense. Secondary to this, a dome down technique was favored. Electrocautery was used to free the gallbladder from the liver. Dissection was taken down to an area that was felt to be near the infundibulum/cystic duct junction. The gallbladder was then amputated. The gallbladder remnant was then inspected. The cystic duct/infundibulum junction was visually identified. A PDS Endoloop was then secured around the cystic duct/infundibulum junction. Once this was completed, the gallbladder was placed into an Endo Catch bag and pulled out through the umbilicus. The abdomen was then copiously irrigated and suctioned, until the effluent was clear. The hilum was then inspected. It was found to be free of any leakage of blood or bile. Next, a 15 [place] round Bryant drain was inserted through the lateralmost trocar. It was placed into the gallbladder fossa. The drain was then sutured to the skin using 2-0 nylon suture. The remaining 5 mm trochars were then removed under direct laparoscopic visualization. The supraumbilical trocar was removed, and pneumoperitoneum was relieved. The supraumbilical fascia was closed using 0 Vicryl suture in [id number] fashion. The overlying skin was closed using 4-0 Vicryl Rapide suture in subcuticular fashion. Dressings were placed, and the procedure was concluded. All sponge, instrument, and needle counts were correct x2. Condition: Stable.
[2018-09-14] MEDS ORDERED: ACETAMINOPHEN 1,000 MG/100 ML RTUPB IV ONE ×2 (11:53→13:15)
[2018-09-14] MEDS ORDERED: ONDANSETRON HCL INJ/PF 4 MG/2 ML SDV IV PRN (12:52)
[2018-09-14] MEDS ORDERED: HYDROCODONE/ACETAMINOPHEN 10-325 MG TABLET PO PRN (12:52)
[2018-09-14] MEDS: KETOROLAC TROMETHAMINE INJ/PF 30 MG/1 ML SDV IV SCH ×2 (17:09→21:53)
[2018-09-14] MEDS ORDERED: NEOSTIGMINE METHYLSULFATE 10 MG/10 ML VIAL ONE (17:28)
[2018-09-14] MEDS ORDERED: GLYCOPYRROLATE 1 MG/5 ML VIAL ONE (17:28)
[2018-09-14] MEDS ORDERED: ONDANSETRON HCL INJ/PF 4 MG/2 ML SDV ONE (17:28)
[2018-09-14] MEDS ORDERED: LIDOCAINE 2% INJ-PF (20 MG/ML) 2 ML AMPUL ONE (17:28)
--- NOTE | 2018-09-14 19:25 | PDOC PROGRESS REPORT ---
Subjective Progress Note for:: 09/14/18 Subjective:: EDGARDO MARIA JR is a 82 year old male with a past medical history of atrial fibrillation status post catheter ablation resulting in normal sinus rhythm greater than 3 years ago admitted to the Surgicalist service for symptomatic cholelithiasis. Hospitalist services consulted for medical clearance. Patient was seen on afternoon rounds s/p lap jake. He was found resting in bed comfortably on room air. He endorses abd discomfort, though improved as compared to time of admission. He denies fever, chills, chest pain, palpitations, dyspnea, orthopnea, cough, na usea, vomiting and diarrhea. He has no questions or concerns at this time. No concerns per nursing. Reason For Visit: SYMPTOMATIC CHOLELITHIASIS Physical Exam Vital Signs: Temp Pulse Resp BP Pulse Ox 99.5 F 97 16 154/78 H 97 09/14/18 16:15 09/14/18 16:15 09/14/18 16:15 09/14/18 16:15 09/14/18 16:15 Intake & Output 09/13/18 09/14/18 09/15/18 06:59 06:59 06:59 Intake Total 1430 3980 Output Total 2405 Balance 1430 1575 Weight 85.6 kg General appearance: PRESENT: no acute distress, well-developed, well-nourished Head exam: PRESENT: atraumatic, normocephalic Eye exam: PRESENT: conjunctiva pink, EOMI, PERRLA. ABSENT: scleral icterus Ear exam: PRESENT: normal external ear exam Mouth exam: PRESENT: moist, tongue midline Neck exam: ABSENT: carotid bruit, JVD, lymphadenopathy, thyromegaly Respiratory exam: PRESENT: clear to auscultation xavi. ABSENT: rales, rhonchi, wheezes Cardiovascular exam: PRESENT: RRR. ABSENT: diastolic murmur, rubs, systolic mur mur Pulses: PRESENT: normal dorsalis pedis pul Vascular exam: PRESENT: normal capillary refill GI/Abdominal exam: PRESENT: normal bowel sounds, soft, tenderness. ABSENT: distended, guarding, mass, organolmegaly, rebound Rectal exam: PRESENT: deferred Extremities exam: PRESENT: full ROM. ABSENT: calf tenderness, clubbing, pedal edema Neurological exam: PRESENT: alert, awake, oriented to person, oriented to place, oriented to time, oriented to situation, CN II-XII grossly intact. ABSENT: motor sensory deficit Psychiatric exam: PRESENT: appropriate affect, normal mood. ABSENT: homicidal ideation, suicidal ideation Skin exam: PRESENT: dry, intact, warm. ABSENT: cyanosis, rash Results Laboratory Results: 09/13/18 16:38 09/13/18 16:38 Impressions: Abdomen Ultrasound 09/13/18 16:08 IMPRESSION: Cholelithiasis with dilated common bile duct. Correlate for biliary obstruction. Assessment and Plan - Diagnosis (1) History of atrial fibrillation Is this a current diagnosis for this admission?: Yes Plan: Resolved, EKG unchanged from 2016. Uneventful perioperative period. Recommend routine follow-up with primary care provider post discharge. (2) Symptomatic cholelithiasis Is this a current diagnosis for this admission?: Yes Plan: Now s/p Lap jake. Management per Surgicalist team. (3) Upper abdominal pain Is this a current diagnosis for this admission?: Yes Plan: Secondary to #2. Defer to surgery - Time Time Spent with patient: Less than 15 minutes - Plan Summary Plan Summary: The hospitalist service will sign off at this time; please reconsult if we can provide any further assistance.
[2018-09-14] MEDS: FAMOTIDINE 20 MG TABLET PO SCH (21:54)
[2018-09-15] MEDS: PIPERACILLIN SODIUM/TAZOBACTAM 3.375 GM in NORMAL SALINE 100 ML IV SCH ×3 (05:36→18:45)
[2018-09-15] MEDS: KETOROLAC TROMETHAMINE INJ/PF 30 MG/1 ML SDV IV SCH ×3 (05:37→21:45)
[2018-09-15 06:01] LABS: ALANINE AMINOTRANSFERASE 53 U/L (21-72); ALBUMIN 3.3 g/dL (3.5-5.0); ALKALINE PHOSPHATASE 73 U/L (38-126); ANION GAP 10 (5-19); ASPARTATE AMINO TRANSFERASE 53 U/L (17-59); BILIRUBIN,DIRECT 0.4 mg/dL (0.0-0.4); BILIRUBIN,TOTAL 1.2 mg/dL (0.2-1.3); BLOOD UREA NITROGEN 11 mg/dL (7-20); CALCIUM 8.9 mg/dL (8.4-10.2); CARBON DIOXIDE 24 mmol/L (22-30); CHLORIDE 103 mmol/L (98-107); GLUCOSE 119 mg/dL (75-110); SODIUM 136.7 mmol/L (137-145); TOTAL PROTEIN 5.8 g/dL (6.3-8.2)
--- NOTE | 2018-09-15 08:36 | PDOC PROGRESS REPORT ---
Subjective Progress Note for:: 09/15/18 Subjective:: still bloated some ruq pain Reason For Visit: SYMPTOMATIC CHOLELITHIASIS Physical Exam Vital Signs: Temp Pulse Resp BP Pulse Ox 99.1 F 101 H 16 120/72 94 09/14/18 23:34 09/14/18 23:34 09/14/18 23:34 09/14/18 23:34 09/14/18 23:34 Intake & Output 09/14/18 09/15/18 09/16/18 06:59 06:59 06:59 Intake Total 1430 4780 100 Output Total 3145 Balance 1430 1635 100 Weight 85.6 kg 85.1 kg General appearance: PRESENT: no acute distress Head exam: PRESENT: normocephalic Eye exam: PRESENT: EOMI Mouth exam: PRESENT: moist Teeth exam: PRESENT: other Neck exam: PRESENT: full ROM Respiratory exam: PRESENT: clear to auscultation xavi Cardiovascular exam: PRESENT: RRR Pulses: PRESENT: normal radial pulses, normal femoral pulses Vascular exam: PRESENT: normal capillary refill GI/Abdominal exam: PRESENT: diminished bowel sounds, distended Rectal exam: PRESENT: deferred Extremities exam: PRESENT: full ROM Musculoskeletal exam: PRESENT: full ROM Neurological exam: PRESENT: alert, awake, oriented to person, oriented to place Psychiatric exam: PRESENT: appropriate affect Skin exam: PRESENT: dry Results Laboratory Results: 09/13/18 16:38 09/15/18 05:15 09/15/18 05:15 Sodium 136.7 L Potassium 4.0 Chloride 103 Carbon Dioxide 24 Anion Gap 10 BUN 11 Creatinine 0.71 Est GFR ( Amer) > 60 Est GFR (Non-Af Amer) > 60 Glucose 119 H Calcium 8.9 Total Bilirubin 1.2 AST 53 ALT 53 Alkaline Phosphatase 73 Total Protein 5.8 L Albumin 3.3 L Impressions: Abdomen Ultrasound 09/13/18 16:08 IMPRESSION: Cholelithiasis with dilated common bile duct. Correlate for bili afdi obstruction. Assessment & Plan - Plan Summary Plan Summary: s/p lap jake for gangenous cholecystitis still with ileus no flatus will add dulcolax cont iv abx. poss home in am check labs.
[2018-09-15] MEDS ORDERED: BISACODYL 10 MG SUPP.RECT PR ONE ×2 (09:00→12:00)
[2018-09-15 09:23] LABS: ABSOLUTE LYMPHOCYTES (AUTO) 0.7 10^3/uL (0.5-4.7); ABSOLUTE MONOCYTES (AUTO) 1.3 10^3/uL (0.1-1.4); ABSOLUTE NEUT (AUTO) 9.1 10^3/uL (1.7-8.2); BASOPHILS % (AUTO) 0.3 % (0-2); EOSINOPHILS % (AUTO) 0.4 % (0-6); HEMATOCRIT 37.2 % (37.9-51.0); LYMPHOCYTES % (AUTO) 5.9 % (13-45); MEAN CORPUSCULAR HEMOGLOBIN 30.1 pg (27.0-33.4); MEAN CORPUSCULAR HGB CONC 33.1 g/dL (32.0-36.0); MEAN CORPUSCULAR VOLUME 91 fl (80-97); MONOCYTES % (AUTO) 12.1 % (3-13); PLATELET COUNT 227 10^3/uL (150-450); RED BLOOD COUNT 4.08 10^6/uL (4.35-5.55); RED CELL DISTRIBUTION WIDTH 13.4 % (11.5-14.0); SEGMENTED NEUTROPHILS % (AUTO) 81.3 % (42-78); TOTAL CELLS COUNTED % (AUTO) 100 %; WHITE BLOOD COUNT 11.2 10^3/uL (4.0-10.5)
[2018-09-15 09:32] LABS: ALANINE AMINOTRANSFERASE 51 U/L (21-72); ALBUMIN 3.3 g/dL (3.5-5.0); ALKALINE PHOSPHATASE 68 U/L (38-126); ANION GAP 10 (5-19); ASPARTATE AMINO TRANSFERASE 50 U/L (17-59); BILIRUBIN,DIRECT 0.3 mg/dL (0.0-0.4); BILIRUBIN,TOTAL 1.3 mg/dL (0.2-1.3); BLOOD UREA NITROGEN 11 mg/dL (7-20); CALCIUM 8.9 mg/dL (8.4-10.2); CARBON DIOXIDE 25 mmol/L (22-30); CHLORIDE 102 mmol/L (98-107); GLUCOSE 136 mg/dL (75-110); POTASSIUM 3.9 mmol/L (3.6-5.0); SODIUM 137.3 mmol/L (137-145); TOTAL PROTEIN 5.6 g/dL (6.3-8.2)
[2018-09-15 09:38] LABS: HEMOGLOBIN 12.3 g/dL (13.5-17.0)
[2018-09-15] MEDS: ENOXAPARIN SODIUM INJ 40 MG/0.4 ML DISP.SYRIN SUBCUT SCH (09:59)
[2018-09-15] MEDS: FAMOTIDINE 20 MG TABLET PO SCH ×2 (09:59→21:38)
[2018-09-16] MEDS: PIPERACILLIN SODIUM/TAZOBACTAM 3.375 GM in NORMAL SALINE 100 ML IV SCH ×2 (00:03→05:52)
[2018-09-16] MEDS: KETOROLAC TROMETHAMINE INJ/PF 30 MG/1 ML SDV IV SCH (05:52)
[2018-09-16] MEDS: ENOXAPARIN SODIUM INJ 40 MG/0.4 ML DISP.SYRIN SUBCUT SCH (09:57)
[2018-09-16] MEDS: FAMOTIDINE 20 MG TABLET PO SCH (09:58)
[2018-09-16 10:53] VITALS: BP 120/72
--- NOTE | 2018-09-16 15:05 | PDOC DISCHARGE SUMMARY ---
General - Admit/Disc Date/PCP Admission Date/Primary Care Provider: 09/13/18 19:45 LILLY VIZCARRA DO Discharge Date: 09/16/18 - Discharge Diagnosis (1) Acute cholecystitis Is this a current diagnosis for this admission?: Yes (2) History of atrial fibrillation Is this a current diagnosis for this admission?: Yes - Additional Information Resuscitation Status: Full Code Discharge Diet: As Tolerated Discharge Activity: Activity As Tolerated, Balance Activity w/Rest, No Driving, No Lifting Over 10 Pounds, No Lifting/Push/Pulling, Slowly Increase Activity, No tub bath, Walk Frequently Home Medications: Aspirin [Ecotrin 81 mg EC Tablet] 81 mg PO DAILY 09/13/18 History of Present Illness Patient complains of: Acute abdominal pain History of Present Illness: EDGARDO MARIA JR is a 82 year old male Acute abdominal pain Hospital Course Hospital Course: 82-year-old white male was admitted to the acute care surgical service for acute abdominal pain felt secondary to acute cholecystitis with cholelithiasis. Patient was kept n.p.o. on IV fluids and the following day underwent laparoscopic cholecystectomy by Dr. Benjamin. He tolerated the procedure well. He did have a drain placed intraoperatively. Over the next 48 hours the patient's condition improved clinically and by the second postoperative day he had his drain removed, was tolerating a diet, and was taking Tylenol as needed pain. He was felt to receive maximum benefit from the hospitalization was discharged home. Physical Exam Vital Signs: Temp Pulse Resp BP Pulse Ox 98.4 F 92 16 120/72 95 09/16/18 10:47 09/16/18 10:47 09/16/18 10:47 09/16/18 10:47 09/16/18 10:47 Intake & Output 09/15/18 09/16/18 09/17/18 06:59 06:59 06:59 Intake Total 4780 1446 Output Total 3145 25 Balance 1635 1446 -25 Weight 85.1 kg 85 kg General appearance: PRESENT: no acute distress GI/Abdominal exam: PRESENT: other - Operative incisions healing satisfactorily, covered with appropriate dressings Results Laboratory Results: 09/15/18 09:00 09/15/18 09:00 Impressions: Abdomen Ultrasound 09/13/18 16:08 IMPRESSION: Cholelithiasis with dilated common bile duct. Correlate for biliary obstruction. Qualifiers - * PATIENT BEING DISCHARGED WITH ANY OF THE FOLLOWING DIAGNOSIS: No VTE patient discharged on overlapping Therapy?: No Reason(s) for not prescribing Overlap Therapy:: Tx not tolerated Stroke Pt being discharged on Anti-thrombolytic therapy?: No Reason(s) for not prescribing Anti-thrombolytic therapy:: Tx not tolerated Stroke Pt being discharged on Anti-coagulation therapy?: No Reason(s) for not prescribing Anti-coagulation therapy:: Tx not tolerated Stroke Pt being discharged on Statins?: No Reason(s) for not prescribing Statins therapy:: Tx not tolerated TN Pt being discharged on Aspirin therapy?: No Reason(s) for not prescribing Aspirin therapy:: Tx not tolerated TN Pt being discharged on Statins?: No Reason(s) for not prescribing Statin therapy:: Tx not tolerated TN Pt discharged ACEI/ARBS?: No Reason(s) for not prescribing ACEI/ARBS:: Tx not tolerated Acute Heart Failure - Is this a Heart Failure Patient?: No Plan Discharge Plan: Patient will be discharged home to care of his family and friends, here locally in [place]; will resume preoperative medications diet and activity. Take Tylenol or Motrin as needed pain. He has been instructed to follow-up with Dr. Benjamin at [facility] in 1 to 2 weeks. Time Spent: Less than 30 Minutes
== END 2018-09-16 11:10 | disposition home or self-care (01) ==
LOC: ER 14:48 → EH 19:45 → INTOOBSV 19:45 → 4S 21:39
PROVIDERS: ADMIT Surgery; ATTEND Surgery
PROC: 0FT44ZZ Resection of Gallbladder, Percutaneous Endoscopic Approach (ICD-10-PCS; principal; 2018-09-14 09:00)
DX: K80.20 Calculus of gallbladder without cholecystitis without obstruction (principal); K59.00 Constipation, unspecified; Z79.82 Long term (current) use of aspirin; Z98.890 Other specified postprocedural states; Z60.2 Problems related to living alone; Z86.79 Personal history of other diseases of the circulatory system; Z98.52 Vasectomy status
CPT/HCPCS: 93005; 99285; 96361; 96374; 36415 ×2; 83690; 85025 ×2; 80076; 80053 ×2; 88304 ×2; 76705; 93010; 00790; 47562; G0378 ×4; A9270 ×3; J3010 ×2; J2001; J1885 ×3; J2710; J1650; J2405 ×2; J7050 ×4; J7030; J2704; J2543 ×4; J0131; J3490 ×2; 790

== ENCOUNTER 2018-11-08 05:49 | Emergency (ER) | payer MEDICARE, OTHER ==
--- NOTE | 2018-11-08 06:58 | EKG REPORT ---
SEVERITY:- ABNORMAL ECG - SINUS RHYTHM LEFT ANTERIOR FASCICULAR BLOCK CONSIDER ANTEROSEPTAL INFARCT : Confirmed by: Prabhjot Weems MD 08-Nov-2018 06:57:51
[2018-11-08 07:13] LABS: ABSOLUTE EOSINOPHILS # (AUTO) 0.5 10^3/uL (0.0-0.6); ABSOLUTE LYMPHOCYTES (AUTO) 1.1 10^3/uL (0.5-4.7); ABSOLUTE MONOCYTES (AUTO) 0.5 10^3/uL (0.1-1.4); ABSOLUTE NEUT (AUTO) 2.9 10^3/uL (1.7-8.2); BASOPHILS % (AUTO) 0.9 % (0-2); EOSINOPHILS % (AUTO) 10.8 % (0-6); HEMATOCRIT 40.2 % (37.9-51.0); HEMOGLOBIN 13.6 g/dL (13.5-17.0); LYMPHOCYTES % (AUTO) 21.7 % (13-45); MEAN CORPUSCULAR HEMOGLOBIN 31.1 pg (27.0-33.4); MEAN CORPUSCULAR HGB CONC 33.8 g/dL (32.0-36.0); MEAN CORPUSCULAR VOLUME 92 fl (80-97); MONOCYTES % (AUTO) 9.5 % (3-13); PLATELET COUNT 234 10^3/uL (150-450); RED BLOOD COUNT 4.37 10^6/uL (4.35-5.55); RED CELL DISTRIBUTION WIDTH 14.4 % (11.5-14.0); SEGMENTED NEUTROPHILS % (AUTO) 57.1 % (42-78); TOTAL CELLS COUNTED % (AUTO) 100 %
[2018-11-08 07:22] LABS: ALBUMIN 4.2 g/dL (3.5-5.0); ALKALINE PHOSPHATASE 87 U/L (38-126); ANION GAP 7 (5-19); ASPARTATE AMINO TRANSFERASE 52 U/L (17-59); BILIRUBIN,DIRECT 0.3 mg/dL (0.0-0.4); BILIRUBIN,TOTAL 0.9 mg/dL (0.2-1.3); BLOOD UREA NITROGEN 14 mg/dL (7-20); CARBON DIOXIDE 33 mmol/L (22-30); CHLORIDE 102 mmol/L (98-107); CREATINE KINASE 34 U/L (55-170); GLUCOSE 95 mg/dL (75-110); POTASSIUM 4.3 mmol/L (3.6-5.0); TOTAL PROTEIN 6.7 g/dL (6.3-8.2)
--- NOTE | 2018-11-08 08:07 | ER Document Report ---
Entered by BRYSON WOOD SCRIBE 11/08/18 0714 Acting as scribe for:RAFI MORILLO MD ED Cardiac - General Mode of Arrival: Ambulatory Information source: Patient TRAVEL OUTSIDE OF THE U.[place]. IN LAST 30 DAYS: No <RAFI MORILLO - Last Filed: 11/08/18 16:06> <KAILEY MEADE - Last Filed: 11/08/18 19:36> - General Chief Complaint: Chest Pain Stated Complaint: CHEST PAIN Time Seen by Provider: 11/08/18 06:59 Primary Care Provider: LILLY VIZCARRA DO [ACTIVE STAFF] - Follow up as needed Notes: Patient is an 83 year old male that presents to the emergency department today with complaints of left sided chest pain which began at about 0500 this morning. Patient told nursing staff that the pain radiated to his right shoulder and back. Patient states the pain lasted for a little over an hour in total. All pain has subsided since arriving here. Patient denies diaphoresis, nausea, shortness of breath, or history of coronary artery disease. (RAFI MORILLO) - Related Data Allergies/Adverse Reactions: No Known Allergies Allergy (Verified 04/17/14 07:03) Past Medical History - General Information source: Patient - Social History Smoking Status: Never Smoker Cigarette use (# per day): No Chew tobacco use (# tins/day): No Smoking Education Provided: No Frequency of alcohol use: None Drug Abuse: None Lives with: Family Family History: Arthritis, Hyperlipidemia Patient has suicidal ideation: No Patient has homicidal ideation: No - Past Medical History Cardiac Medical History: Reports: Hx Atrial Fibrillation - paroxysmal atrial fibrillation, ablation done about 10 years ago. GI Medical History: Reports: Hx Gastroesophageal Reflux Disease Musculoskeletal Medical History: Reports Hx Arthritis Past Surgical History: Reports: Hx Cardiac Catheterization - Ablation done about 10 years ago for paroxysmal atrial fibrillation., Hx Genitourinary Surgery - vasectomy, Hx Neurologic Surgery - nerve ball removed form left arm 30 yrs ago, Hx Orthopedic Surgery - fusionL4-5 last at [place]. He did not require cardiac clearanc - Immunizations Immunizations up to date: Yes Hx Diphtheria, Pertussis, Tetanus Vaccination: Yes Hx Pneumococcal Vaccination: 10/27/13 <RAIF MORILLO - Last Filed: 11/08/18 16:06> Review of Systems - Review of Systems Constitutional: denies: Chills, Diaphoresis EENT: No symptoms reported Cardiovascular: See HPI, Chest pain Respiratory: denies: Short of breath Gastrointestinal: denies: Nausea Genitourinary: No symptoms reported Male Genitourinary: No symptoms reported Musculoskeletal: No symptoms reported Skin: No symptoms reported Hematologic/Lymphatic: No symptoms reported Neurological/Psychological: No symptoms reported -: Yes All other systems reviewed and negative <RAFI MORILLO - Last Filed: 11/08/18 16:06> Physical Exam <RAFI MORILLO - Last Filed: 11/08/18 16:06> - Vital signs Vitals: Temp Pulse Resp BP Pulse Ox 97.9 F 60 16 154/77 H 98 11/08/18 06:05 11/08/18 06:05 11/08/18 06:05 11/08/18 06:05 11/08/18 06:05 - Notes Notes: Physical Exam: General: Alert, appears well. HEENT: Normocephalic. Atraumatic. PERRL. Extraocular movements intact. Oropharynx clear. Neck: Supple. Non-tender. Respiratory: No respiratory distress. Clear and equal breath sounds bilaterally. Cardiovascular: Regular rate and rhythm. Abdominal: Minimal RUQ tenderness with palpation. No distension. Normal Bowel Sounds. Back: No gross abnormalities. Extremities: Moves all four extremities. Upper extremities: Normal inspection. Normal ROM. Lower extremities: Normal inspection. No edema. Normal ROM. Neurological: Normal cognition. AAOx4. Normal speech. Psychological: Normal affect. Normal Mood. Skin: Warm. Dry. Normal color. (RAFI MORILLO) Course - Laboratory Result Diagrams: 11/08/18 06:37 11/08/18 06:37 - Diagnostic Test Radiology reviewed: Image reviewed, Reports reviewed - Right upper quadrant ultrasound shows a large hypoechoic collection inferior to the left hepatic lobe that is possibly postop seroma or biloma. There is an additional cystic area within gallbladder fossa with echogenic focus internally which may represent residual stone. CT is recommended. - EKG Interpretation by N[facility] EKG shows normal: Sinus rhythm, [place], Intervals, QRS Complexes, ST-T Waves Rate: Normal - 61 Rhythm: NSR [place]/QRS: LAHB/LAFB When compared to previous EKG there are: No significant change - Transfer of Care Care transferred to following provider: Dr. Meade <RAFI MORILLO - Last Filed: 11/08/18 16:06> - Laboratory Result Diagrams: 11/08/18 06:37 11/08/18 06:37 - Diagnostic Test Radiology reviewed: Image reviewed, Reports reviewed <KAILEY MEADE - Last Filed: 11/08/18 19:36> - Re-evaluation Re-evalutation: 11/08/18 19:33 I reevaluated the patient just now. He states he has absolutely no pain or symptoms and "feels fine". He is in the room reading a book. His abdomen is entirely nontender. I did discuss the case with the surgeon on-call who states patient should follow-up as an outpatient in surgery clinic. He states he will inform Dr. Julian of the patient's visit here in the emergency department. I did review the CAT scan with the surgeon. Since patient has no fever, no white count, normal vital signs, it was deemed that he can follow-up as an outpatient. (KAILEY MEADE) - Vital Signs Vital signs: Temp Pulse Resp BP Pulse Ox 97.4 F 60 12 121/85 95 11/08/18 10:00 11/08/18 06:05 11/08/18 18:38 11/08/18 18:38 11/08/18 18:38 - Laboratory Laboratory results interpreted by me: 11/08/18 11/08/18 11/08/18 06:37 06:37 06:37 RDW 14.4 H Eos % (Auto) 10.8 H D-Dimer 0.51 H Carbon Dioxide 33 H Creatine Kinase 34 L Urine Ascorbic Acid 11/08/18 11/08/18 09:01 11:15 RDW Eos % (Auto) D-Dimer Carbon Dioxide Creatine Kinase 29 L Urine Ascorbic Acid 20 H - Transfer of Care Notes: 11/08/18 16:[address] scan of the abdomen pelvis with IV and oral contrast to evaluate abnormalities found on ultrasound in the right upper quadrant. (RAFI MORILLO) Discharge <RAFI MORILLO - Last Filed: 11/08/18 16:06> <KAILEY MEADE - Last Filed: 11/08/18 19:36> - Discharge Clinical Impression: Subphrenic fluid collection Chest pain Qualifiers: Chest pain type: unspecified Qualified Code(s): R07.9 - Chest pain, unspecified Condition: Stable Disposition: HOME, SELF-CARE Instructions: Chest Pain of Unclear Cause ([facility]) Additional Instructions: You have an abnormal fluid collection near the site of your surgery. You need to call Dr. Julian first thing in the morning to arrange follow-up. Referrals: RAD JULIAN MD [ACTIVE STAFF] - Follow up tomorrow I personally performed the services described in the documentation, reviewed and edited the documentation which was dictated to the scribe in my presence, and it accurately records my words and actions.
--- NOTE | 2018-11-08 09:00 | RADIOLOGY REPORT (SQ) ---
EXAM DESCRIPTION: CHEST 2 VIEWS COMPLETED DATE/TIME: 11/08/2018 8:51 am REASON FOR STUDY: chest pain COMPARISON: None. EXAM PARAMETERS: NUMBER OF VIEWS: two views TECHNIQUE: Digital Frontal and Lateral radiographic views of the chest acquired. RADIATION DOSE: NA LIMITATIONS: none FINDINGS: LUNGS AND PLEURA: No opacities, masses or pneumothorax. No pleural effusion. Hyperinflati on with flattening of the hemidiaphragm and increased AP diameter. MEDIASTINUM AND HILAR STRUCTURES: No masses or contour abnormalities. HEART AND VASCULAR STRUCTURES: Heart normal size. No evidence for failure. BONES: No acute findings. HARDWARE: None in the chest. OTHER: No other significant finding. IMPRESSION: Emphysematous change without evidence of acute cardiopulmonary process. TECHNICAL DOCUMENTATION: JOB ID: [id number] [employer]- All Rights Reserved Reading location - IP/workstation name: [email or web address]
[2018-11-08 09:45] LABS: APPEARANCE,URINE CLEAR; BILIRUBIN,URINE NEGATIVE (NEGATIVE); COLOR,URINE YELLOW; GLUCOSE, URINE NEGATIVE (NEGATIVE); KETONES,URINE NEGATIVE (NEGATIVE); LEUKOCYTE ESTERASE,URINE NEGATIVE (NEGATIVE); NITRITE,URINE NEGATIVE (NEGATIVE); PROTEIN,URINE NEGATIVE (NEGATIVE); URINE SPECIFIC GRAVITY 1.009; UROBILINOGEN,URINE NEGATIVE mg/dL (<2.0)
--- NOTE | 2018-11-08 13:57 | RADIOLOGY REPORT (SQ) ---
EXAM DESCRIPTION: U/S ABDOMEN LIMITED W/O DOP COMPLETED DATE/TIME: 11/08/2018 1:04 pm REASON FOR STUDY: RUQ epigastric pain, recent jake COMPARISON: None. TECHNIQUE: Dynamic and static grayscale images acquired of the abdomen and recorded on PACS. Additio nal selected color Doppler and spectral images recorded. LIMITATIONS: Some structures obscured. FINDINGS: PANCREAS: Nonvisualized. LIVER: Hypoechoic area with scattered septations along the left hepatic lobe inferiorly measuring 6.4 x 6.9 x 4.9 cm. No significant internal vascularity. Findings not previously visualized on exam da power 09/13/2018. No intrahepatic ductal dilation. LIVER VASCULATURE: Normal directional flow of the main portal vein and hepatic veins. GALLBLADDER: Surgically absent. There is a cystic area within the gallbladder fossa measuring approx imately 3.6 x 2.1 cm. There is a echogenic focus with posterior acoustic shadowing. ULTRASOUND-DETECTED CARTER'S SIGN: Negative. INTRAHEPATIC DUCTS AND COMMON DUCT: CBD measures up to 9 mm, likely status post cholecystectomy. No intrahepatic ductal dilation. INFERIOR VENA CAVA: Normal flow. AORTA: Mild dilation of the mid aorta measuring up to 3.1 cm. RIGHT KIDNEY: Normal size measuring 11.2 cm. Normal echogenicity. No solid or suspicious masses. No hydronephrosis. No calcifications. PERITONEAL AND RIGHT PLEURAL SPACE: No ascites or effusions. OTHER: No other significant findings. IMPRESSION: 1. Patient is status post cholecystectomy. Hypoechoic collection inferior to the left hepatic lobe measuring approximately 6.4 x 6.9 x 4.9 cm possibly postoperative seroma or biloma. Add itional cystic area within the gallbladder fossa measuring 3.6 x 2.1 cm with echogenic focus internal ly. Findings may represent residual stone within a cystic duct remnant versus possible retained a st one in a postoperative collection in the gallbladder fossa. CT could be considered for further carmen cterization. 2. CBD measures 9 mm, likely status post cholecystectomy change. 3. Mild dilation of the mid aorta measuring up to 3.1 cm. Follow-up recommendations as below. COMMENT: AAA Size: Follow-up Recommendation 3.0-3.4 cm Every 3 years *Based upon the Society for Vascular Surgery Guidelines: J Vasc Surg. 2009 Oct;50(4 Suppl):S2-49 *For aortas of maximum diameter of 2.6-2.9 cm meeting the criteria for AAA (?1.5 x proximal normal se gment) TECHNICAL DOCUMENTATION: JOB ID: [id number] [employer]- All Rights Reserved Reading location - IP/workstation name: [email or web address]
--- NOTE | 2018-11-08 18:09 | RADIOLOGY REPORT (SQ) ---
EXAM DESCRIPTION: CT ABD/PELVIS WITH IV ORAL COMPLETED DATE/TIME: 11/08/2018 5:41 pm REASON FOR STUDY: Biliary fossa abnormality status post cholecystect COMPARISON: None. TECHNIQUE: CT scan of the abdomen and pelvis performed using helical scanning technique with dynamic intravenous contrast injection. No oral contrast. Images reviewed with lung, soft tissue, and bone windows. Reconstructed coronal and sagittal MPR images reviewed. Delayed images for evaluation of the urinary system also acquired. All images stored on PACS. All CT scanners at this facility use dose modulation, iterative reconstruction, and/or weight based d osing when appropriate to reduce radiation dose to as low as reasonably achievable (ALARA). [facility]: Dose Right [facility]: CareDose [facility]: Dose Right [facility]: Teradose 4D [facility]: [facility] CONTRAST TYPE AND DOSE: contrast/concentration: Isovue 350.00 mg/ml; Total Contrast Delivered: 96.0 ml; Total Saline Delivered: 43.0 ml RENAL FUNCTION: BUN 14, creatinine 0.77 RADIATION DOSE: CT Rad equipment meets quality standard of care and radiation dose reduction techniq ues were employed. CTDIvol: 5.6 - 6.8 mGy. DLP: 674 mGy-cm.. LIMITATIONS: None. FINDINGS: LOWER CHEST: No significant findings. No nodules or infiltrates. LIVER: There are several hepatic cysts. The largest is in the left lobe and measures 6.6 cm. There is an air decreased attenuation adjacent to the gallbladder fossa. This is nonspecific but in a max ent who has had recent cholecystectomy focal biloma cannot be excluded. Complex cyst is also a possi bility. SPLEEN: Normal size. No focal lesions. PANCREAS: No masses. No significant calcifications. No adjacent inflammation or peripancreatic fluid collections. Pancreatic duct not dilated. GALLBLADDER: According to history the patient has had cholecystectomy. There is a small stones ident ified on image 27 of series 2. This could represent drop stone with surrounding biloma. Developing abscess cannot be excluded. Total fluid collection measures 3.5 cm in greatest diameter. ADRENAL GLANDS: No significant masses or asymmetry. RIGHT KIDNEY AND URETER: No solid masses. No significant calcifications. No hydronephrosis or hyd roureter. LEFT KIDNEY AND URETER: No solid masses. No significant calcifications. No hydronephrosis or hydr oureter. AORTA AND VESSELS: No aneurysm. No dissection. Renal arteries, SMA, celiac without stenosis. RETROPERITONEUM: No retroperitoneal adenopathy, hemorrhage or masses. BOWEL AND PERITONEAL CAVITY: No masses or inflammatory changes. No free fluid or peritoneal masses. APPENDIX: Not visualized. PELVIS: No mass. No free fluid. Normal bladder. ABDOMINAL WALL: Focal right lateral abdominal wall hernia containing omental fat only. This is best demonstrated on series 2, image 49. BONES: No significant or acute findings. OTHER: No other significant finding. IMPRESSION: With the patient's clinical history presumed drop stone with surrounding biloma or absce ss. Area of heterogeneous attenuation within the liver adjacent to the gallbladder fossa which may r epresent developing abscess or biloma as well. Both areas would be difficult to the drained percutan eously due to their small size. TECHNICAL DOCUMENTATION: JOB ID: [id number] Quality ID # [id number]: Final reports with documentation of one or more dose reduction techniques (e.g., Au tomated exposure control, adjustment of the mA and/or kV according to patient size, use of iterative reconstruction technique) 2010 [employer]- All Rights Reserved Reading location - IP/workstation name: [email or web address]
[2018-11-08 20:03] VITALS: BP 129/81
== END 2018-11-08 20:09 | disposition home or self-care (01) ==
LOC: ER 05:49
DX: R07.9 Chest pain, unspecified (principal); R93.5 Abnormal findings on diagnostic imaging of other abdominal regions, including retroperitoneum; I48.91 Unspecified atrial fibrillation; Z98.1 Arthrodesis status; Z90.49 Acquired absence of other specified parts of digestive tract
CPT/HCPCS: 36415; 71046; 74177; 76705; 80053; 81001; 82550; 83690; 84484; 85025; 85379; 93005; 93010; 99285

== ENCOUNTER 2020-01-19 14:01 | Emergency (ER) | payer MEDICARE, OTHER ==
[2020-01-19 14:08] VITALS: BP 141/84
--- NOTE | 2020-01-19 14:35 | ER Document Report ---
ED Medical Screen (RME) - General Chief Complaint: Near Syncope Stated Complaint: VISION PROBLEM Time Seen by Provider: 01/19/20 14:25 Primary Care Provider: ERUM LONDON MD [Primary Care Provider] - Follow up as needed Mode of Arrival: Wheelchair Information source: Patient Notes: 84-year-old male presented to ED for complaints of near syncopal. He states he drove up to the stoplight his vision went almost black felt like he was going to pass out was very lightheaded and dizzy then his vision came back. He states he is not having any problems now. He states he feels normal now. I did speak with Dr. Medrano he stated he would need a normal work-up for syncope. He does have a history of A. fib. Patient is alert oriented no facial droop no palmar drift at this time. He is able to answer questions appropriately. I have greeted and performed a rapid initial assessment of this patient. A comprehensive ED assessment and evaluation of the patient, analysis of test results and completion of medical decision making process will be conducted by an additional ED providers. TRAVEL OUTSIDE OF THE [place].S[place] IN LAST 30 DAYS: No - Related Data Allergies/Adverse Reactions: No Known Allergies Allergy (Verified 04/17/14 07:03) Past Medical History - Past Medical History Cardiac Medical History: Reports: Hx Atrial Fibrillation - paroxysmal atrial fibrillation, ablation done about 10 years ago. Denies: Hx Heart Attack, Hx Hypertension Pulmonary Medical History: Denies: Hx Asthma Neurological Medical History: Denies: Hx Cerebrovascular Accident, Hx Seizures Renal/ Medical History: Denies: Hx Peritoneal Dialysis GI Medical History: Reports: Hx Gastroesophageal Reflux Disease. Denies: Hx Hepatitis, Hx Hiatal Hernia, Hx Ulcer Musculoskeltal Medical History: Reports Hx Arthritis Infectious Medical History: Denies: Hx Hepatitis Past Surgical History: Reports: Hx Cardiac Catheterization - Ablation done about 10 years ago for paroxysmal atrial fibrillation., Hx Genitourinary Surgery - vasectomy, Hx Neurologic Surgery - nerve ball removed form left arm 30 yrs ago, Hx Orthopedic Surgery - fusionL4-5 last at [place]. He did not require cardiac clearanc, Other. Denies: Hx Open Heart Surgery, Hx Pacemaker - Immunizations Immunizations up to date: Yes Hx Diphtheria, Pertussis, Tetanus Vaccination: Yes Physical Exam - Vital signs Vitals: Temp Pulse Resp BP Pulse Ox 98.4 F 84 16 141/84 H 97 01/19/20 14:07 01/19/20 14:07 01/19/20 14:07 01/19/20 14:07 01/19/20 14:07 Course - Vital Signs Vital signs: Temp Pulse Resp BP Pulse Ox 98.4 F 84 16 141/84 H 97 01/19/20 14:07 01/19/20 14:07 01/19/20 14:07 01/19/20 14:07 01/19/20 14:07 Doctor's Discharge - Discharge Referrals: ERUM LONDON MD [Primary Care Provider] - Follow up as needed
--- NOTE | 2020-01-19 14:49 | EKG REPORT ---
SEVERITY:- ABNORMAL ECG - SINUS RHYTHM LEFT ANTERIOR FASCICULAR BLOCK : Confirmed by: David Contreras MD 19-Jan-2020 14:48:29
[2020-01-19 15:35] LABS: ABSOLUTE BASOPHILS # (AUTO) 0.1 10^3/uL (0.0-0.2); ABSOLUTE EOSINOPHILS # (AUTO) 0.4 10^3/uL (0.0-0.6); ABSOLUTE LYMPHOCYTES (AUTO) 1.1 10^3/uL (0.5-4.7); ABSOLUTE MONOCYTES (AUTO) 0.6 10^3/uL (0.1-1.4); ABSOLUTE NEUT (AUTO) 3.8 10^3/uL (1.7-8.2); EOSINOPHILS % (AUTO) 6.8 % (0-6); HEMATOCRIT 39.7 % (37.9-51.0); HEMOGLOBIN 13.7 g/dL (13.5-17.0); LYMPHOCYTES % (AUTO) 18.4 % (13-45); MEAN CORPUSCULAR HEMOGLOBIN 31.7 pg (27.0-33.4); MEAN CORPUSCULAR HGB CONC 34.4 g/dL (32.0-36.0); MEAN CORPUSCULAR VOLUME 92 fl (80-97); MONOCYTES % (AUTO) 10.6 % (3-13); PLATELET COUNT 226 10^3/uL (150-450); RED BLOOD COUNT 4.31 10^6/uL (4.35-5.55); RED CELL DISTRIBUTION WIDTH 13.7 % (11.5-14.0); SEGMENTED NEUTROPHILS % (AUTO) 63.2 % (42-78); TOTAL CELLS COUNTED % (AUTO) 100 %
[2020-01-19 15:39] LABS: APPEARANCE,URINE CLEAR; BILIRUBIN,URINE NEGATIVE (NEGATIVE); COLOR,URINE YELLOW; GLUCOSE, URINE NEGATIVE (NEGATIVE); KETONES,URINE NEGATIVE (NEGATIVE); LEUKOCYTE ESTERASE,URINE NEGATIVE (NEGATIVE); NITRITE,URINE NEGATIVE (NEGATIVE); PROTEIN,URINE NEGATIVE (NEGATIVE); URINE SPECIFIC GRAVITY 1.011; UROBILINOGEN,URINE NEGATIVE mg/dL (<2.0)
[2020-01-19 15:50] LABS: ALBUMIN 4.3 g/dL (3.5-5.0); ALKALINE PHOSPHATASE 84 U/L (38-126); ANION GAP 8 (5-19); ASPARTATE AMINO TRANSFERASE 22 U/L (17-59); BILIRUBIN,TOTAL 0.7 mg/dL (0.2-1.3); BLOOD UREA NITROGEN 11 mg/dL (7-20); CALCIUM 10.3 mg/dL (8.4-10.2); CARBON DIOXIDE 31 mmol/L (22-30); CHLORIDE 100 mmol/L (98-107); CREATINE KINASE 52 U/L (55-170); GLUCOSE 102 mg/dL (75-110); POTASSIUM 4.4 mmol/L (3.6-5.0); TOTAL PROTEIN 6.8 g/dL (6.3-8.2)
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
== END 2020-01-19 18:27 | disposition home or self-care (01) ==
LOC: ER 14:01
DX: R42 Dizziness and giddiness (principal); H53.8 Other visual disturbances; I44.4 Left anterior fascicular block
CPT/HCPCS: 36415; 80053; 81001; 82550; 84484; 85025; 93005; 93010; 99284